=== PATIENT | male | born 1950 | race Caucasian/White ===

== ENCOUNTER → 2016-11-26 | Day surgery (SDC) | payer MEDICARE ==
[~2016-11-26] MED LIST: BUPIVACAINE 0.25%-EPINEPHRINE 1:200,000 30 ML ONE; BUPIVACAINE LIPOSOME/PF 1.3% 20 ML VIAL INF ONE; CEFAZOLIN 1 GM VIAL ONE; FENTANYL 100 MCG/2 ML VIAL IV PRN; FENTANYL 100 MCG/2 ML VIAL ONE; HYDROmorphone 1 MG INJECTION IV PRN; LABETALOL 20 MG/4 ML SYRINGE IV PRN; MEPERIDINE 25 MG/ML TUBEX IV PRN; ONDANSETRON HCL 4 MG ODT TAB PO PRN; ONDANSETRON HCL 4 MG/2 ML VIAL IV PRN; OXYCODONE HCL 5 MG TABLET ONE; PROMETHAZINE 25 MG/ML VIAL IV PRN; TAMSULOSIN HCL 0.4 MG CAP PO ONE; hydrALAZINE 20 MG/ML VIAL IV PRN
--- NOTE | 2016-11-26 07:48 | SC.ANESPOS ---
Post-Anesthesia Note LOC: [facility] Calling Post-Anesthesia Assessment: Awake, Returned to Baseline, Hemodynamically Stable , Pain Control Adequate Phase I & II Recovery Complete: Yes Apparent Anesthesia Complication: No : N PACU Discharge Time: 11:20 - Vital Signs Blood Pressure: 147/86 Pulse: 58 Resp Rate: 18 O2 Sat: 97 Temp: 98.5 F - Comments Anesthesia Discharge Time Report Time 11:20
--- NOTE | 2016-11-26 08:01 | HIM.ANES ---
Anesthesia Evaluation & Plan Diagnoses: UNIL INGUINAL HERNIA, W/O OBST OR GANGR, NOT SPCF RECUR (11/26/16) - Focused Review of Systems Cardiac History: Yes: Hx Hypertension, Hx Cardiac Disorders, Hx Abnormal Cholesterol/Hyperlipidemia HEENT: Yes: Cataract Removal (2013), Hx Vision Problem (PRESCRIPTION GLASSES), Other HEENT Problems Hx Other HEENT Surgery: DENTAL EXTRACTIONS 11/2015 Respiratory: Yes: Hx Snoring, Hx Recent Cold/Flu (11/20/2015) Gastrointestinal: Yes: Hx Gastroesophageal Reflux Disease (CONTROLLED WITH DIET) , Hx Gastrointestinal Disorders, Hx Diverticulitis (TREATED WITH ANTIBIOTICS 2007), Hx Diverticulosis (PER COLONOSCOPY), Hx Colonoscopy (2007 SMALL POLYP) Neurological/Musculoskeletal: No: Hx Neurological Disorders Psychological: Yes Hx Anxiety, Yes Hx Depression, Yes Hx Mental/Emotional Disorders Endocrine: Yes: Hx Hypothyroidism Blood/Autoimmune: No: Hx AIDS, Hx Hepatitis (type) Smoking Status: Never smoker Hx Echocardiogram (date): Yes (07/2016 NORMAL LV FUNCTION) Surgical History: Yes: Other (Melanoma resection) Other Surgical History: DENTAL EXTRACTIONS 11/2015 MELANOMA LESION REMOVAL ON FACE WITH LYMPH NODES 2011 - Focused Physical Exam Mallampati: Class II Thyromental Distance: Greater than 3 Neck: Full Range of Motion Dental: Normal - no significant findings Cardiovascular/Chest: Normal Respiratory: Lungs clear Any problems with anesthesia, including nausea and vomiting?: No Any relatives with a history of Malignant Hyperthermia?: No Beta Willa given (if appropriate): Yes (Took last PM) Does the patient have a history of Motion Sickness-: No Other: Allergies Allergy/AdvReac Type Severity Reaction Status Date / Time Sulfa (Sulfonamide Allergy Rash-Genera Verified 11/26/16 07:52 Antibiotics) lized Home Medications Medication Instructions Recorded Last Taken Type Carvedilol [Coreg] 3.125 mg PO BID 11/13/16 11/25/16 20:00 History Levothyroxine [Synthroid, Levoxyl] 50 mcg PO DAILY 11/13/16 11/25/16 History Lactobacillus Combination No.4 1 each PO .EVERYOTHERDAY 11/23/16 11/25/16 History [Probiotic] Height and Weight Patient's height 6 ft Patient's weight 216 lb - Anesthetic Plan Anesthesia Type: General ASA Class: 2 -: I have examined this patient and reviewed the medical record. The patient has been assessed prior to anesthesia. Risks and benefits of anesthesia and anesthetic technique options have been discussed and all questions answered. The patient accepts the risk and desires me to proceed with the planned anesthetic.
--- NOTE | 2016-11-26 10:12 | HIMOPRPT ---
DATE OF PROCEDURE: 11/26/16 PREOPERATIVE DIAGNOSIS: Symptomatic bilateral inguinal hernias. POSTOPERATIVE DIAGNOSIS: Same. PROCEDURE: Laparoscopic bilateral inguinal hernia repairs. SURGEON: Jem Peter MD INVESTIGATIVE ANALYST: Imani Kingsley. ANESTHESIA: General Anesthesia ESTIMATED BLOOD LOSS: Minimal COMPLICATIONS: None noted. ANTIBIOTICS: Preoperative antibiotics were given in occasions. INDICATIONS: SERG SPENCE is a 65 year-old M patient, who had been found to have symptomatic bilateral inguinal hernias. We evaluated and felt to be benefit from inguinal hernia repair. I had explained the risks and benefits to include the risk of infection, bleeding, anesthesia as well as, the well known risk of recurrence, testicular devascularization and nerve entrapment. The patient had understood, had agreed, and was brought for the above-mentioned procedure. PROCEDURE IN DETAIL: The patient was brought to the operating room and placed on the operating table in supine position. After identification of the patient' s site, was given adequate amount of general anesthesia, then prepped and draped in sterile manner. When given okay by anesthesia, and after an appropriate time-out, we assured that the antibiotics had been given. A incision , just at the umbilicus was made through the skin and subcutaneous tissues, and dissection was carried down to the preperitoneal space. We were able to carefully dissect out the preperitoneal space, placed a balloon dissector and dissected the preperitoneal space in usual manner after infiltration of local anesthesia. The balloon dissector was removed and a balloon trocar was inserted in the usual manner, and then the preperitoneal space insufflated to 12 mmHg pressure with CO2 gas. Two trocars were placed under direct vision without any problems. At that point, we carefully dissected the inguinal floor, dissected the right direct inguinal hernia sac and reduce this without any problems. At that point, we went ahead and assured we had the peritoneum pulled away the cord structures. Cord structures had been kept out of harm's way the iliac vessels had been kept out of harm's way. The preperitoneal space had been well dissected so that we had good 4 cm overlap on each side. The defect at that point, we took a piece of preformed mesh, placed this in the preperitoneal space , oriented it tacked it down to the pubic tubercle, David ligament, rectus muscle, and 1 to the external oblique aponeurosis. We went ahead and dissected the right side at that point carefully pain attention to the epigastric vessels and the iliac vessels and the cord structures. There was noted to be a left direct inguinal hernia that was reduced and we went ahead and dissected the peritoneum away from the cord structures and had good dissection away from the cord structures for approximately 4cm. With hemostasis assured we went ahead and placed a piece of preformed mesh and tacked this down in a similar manner. We used secure strap into the soft tissues in a Protac to secure to David's ligament. At that point , we went ahead, assured hemostasis, placed a local anesthetic. Desufflated the preperitoneal space and remove the trocars under direct vision. Assured hemostasis, then went ahead and brought the fascia together with #1 Vicryl sutures. All wounds were irrigated and brought together with 4-0 Monocryl. Dermabond tissue adhesive was applied and allowed to dry. The patient was then awoken and taken to recovery room in excellent condition with correct sponge counts and needle counts.
[2016-11-26 11:08] VITALS: TEMP 98.5
[2016-11-26 12:55] VITALS: PULSE 58
[2016-11-26 14:53] VITALS: BP 147/86
== END ==
LOC: SDC 07:15
PROVIDERS: ATTEND Surgery
PROC: 0YUA4JZ Supplement Bilateral Inguinal Region with Synthetic Substitute, Percutaneous Endoscopic Approach (ICD-10-PCS; principal; 2016-11-26 08:35)
DX: K40.20 Bilateral inguinal hernia, without obstruction or gangrene, not specified as recurrent (principal); I10 Essential (primary) hypertension; E78.5 Hyperlipidemia, unspecified; K21.9 Gastro-esophageal reflux disease without esophagitis; F41.9 Anxiety disorder, unspecified; F32.9 Major depressive disorder, single episode, unspecified; E03.9 Hypothyroidism, unspecified; Z79.899 Other long term (current) drug therapy
CPT/HCPCS: 49650; A9270; C1781; C9290; J0690; J3010; J3490